=== PATIENT | male | born 1995 | race African-American/Black ===

== ENCOUNTER 2017-07-07 16:11 | Emergency (ER) | payer OTHER ==
[~2017-07-07] VITALS: Ht 175.3 cm; Wt 108.0 kg
[2017-07-07] MEDS ORDERED: PROVENTIL HFA6.7 G1 INH (18:32)
[2017-07-07] MEDS ORDERED: DOXYCYCLINE 10100 MG PO (18:32)
[2017-07-07] MEDS ORDERED: TESSALON PERLE100 MG PO (18:32)
[2017-07-07] MEDS ORDERED: DOXYCYCLIN25 MG/5 M1 PO (18:42)
== END 2017-07-07 18:20 | disposition home or self-care (01) ==
LOC: ER 16:11
DX: J18.9 Pneumonia, unspecified organism (principal)

== ENCOUNTER 2017-07-18 15:37 | Emergency (ER) | payer OTHER ==
[~2017-07-18] VITALS: Ht 175.3 cm; Wt 108.0 kg
[~2017-07-18 15:37] MED LIST: DOXYCYCLIN25 MG/5 M1 PO; DOXYCYCLINE 10100 MG PO; PROVENTIL HFA6.7 G1 INH; TESSALON PERLE100 MG PO
[2017-07-18] MEDS ORDERED: TESSALON PERLE100 MG PO (16:32)
== END 2017-07-18 16:55 ==
LOC: ER 15:37
DX: J06.9 Acute upper respiratory infection, unspecified (principal); F84.0 Autistic disorder